=== PATIENT | male | born 1995 | race Caucasian/White ===

== ENCOUNTER 2017-12-06 13:44 | Inpatient (IN) | payer OTHER ==
[~2017-12-06] VITALS: Ht 182.9 cm; Wt 83.9 kg
[2017-12-06] MEDS ORDERED: MORPHINE SULFATE 4 MG/ML, 1ML ONE (14:18)
[2017-12-06] MEDS ORDERED: ONDANSETRON 2MG/ML, 2ML ONE (14:18)
[2017-12-06] MEDS ORDERED: SODIUM CHLORIDE FLUSH 10ML SYR IVF ONE (14:30)
[2017-12-06] MEDS ORDERED: MORPHINE SULFATE 4 MG/ML, 1ML IVPush PRN ×2 (14:30→21:00)
[2017-12-06] MEDS ORDERED: ONDANSETRON ODT 4 MG PO ONE (14:30)
[2017-12-06 14:33] LABS: BASOPHILS # (AUTO) 0.04 x10^3/uL (0-0.1); BASOPHILS % (AUTO) 1 % (0-1); EOSINOPHILS # (AUTO) 0.15 x10^3/uL (0-0.4); EOSINOPHILS % (AUTO) 2 % (1-7); LYMPHOCYTES # (AUTO) 3.82 x10^3/uL (1-3.4); LYMPHOCYTES % (AUTO) 53 % (22-44); MD NO; MEAN CORPUSCULAR HGB CONC 33.8 g/dL (33.2-36.2); MEAN CORPUSCULAR VOLUME 88.8 fL (81-97); MEAN PLATELET VOLUME 8.3 fL (7.4-10.4); MONOCYTES % (AUTO) 10 % (2-9); NEUTROPHILS # (AUTO) 2.47 x10^3/uL (1.8-6.8); NEUTROPHILS % (AUTO) 34 % (42-75); PLATELET COUNT 259 x10^3/uL (130-400); RED BLOOD COUNT 5.31 x10^6/uL (4.38-5.82); RED CELL DISTRIBUTION WIDTH 12.1 % (9.4-14.8)
[2017-12-06 14:41] LABS: ALBUMIN 4.4 g/dL (3.4-5.0); ANION GAP 13 mmol/L (5-15); CALCIUM 8.8 mg/dL (8.5-10.1); CHLORIDE 104 mmol/L (98-107)
[2017-12-06] MEDS ORDERED: POTASSIUM CHLORIDE 20 MEQ TAB.ER.PRT ONE (15:57)
[2017-12-06 17:00] LABS: MICROSCOPIC AUTO
[2017-12-06] MEDS ORDERED: POTASSIUM CHLORIDE 20 MEQ TAB.ER.PRT PO SCH (17:00)
[2017-12-06 17:01] LABS: CULTURE INDICATED? NO
[2017-12-06] MEDS ORDERED: BUPIVACAINE/PF 0.25% ONE (17:59)
[2017-12-06] MEDS ORDERED: EPINEPHRINE 1 MG/ML, 1ML ONE (18:00)
[2017-12-06] MEDS ORDERED: MIDAZOLAM 1 MG/ML, 2ML ONE (18:18)
[2017-12-06] MEDS ORDERED: FENTANYL PF 250 MCG/5ML ONE (18:18)
[2017-12-06 18:22] VITALS: BP 109/67
[2017-12-06] MEDS ORDERED: BUPIVACAINE/PF 0.25% INFIL ONE (18:54)
[2017-12-06] MEDS ORDERED: FENTANYL PF 100 MCG/2ML IV PRN ×2 (19:00→19:15)
[2017-12-06] MEDS ORDERED: LORazepam 2 MG/ML, 1ML IVPush PRN ×2 (19:00→19:15)
[2017-12-06] MEDS ORDERED: PROMETHAZINE 12.5 MG SUPP PR PRN ×2 (19:00→19:15)
[2017-12-06] MEDS ORDERED: LABETALOL 5MG/ML, 20ML IV PRN ×2 (19:00→19:15)
[2017-12-06] MEDS ORDERED: ALBUTEROL SULFATE 2.5 MG/3 ML NPPB PRN ×2 (19:00→19:15)
[2017-12-06] MEDS ORDERED: hydrALAzine 20 MG/ML, 1ML IV PRN ×2 (19:00→19:15)
[2017-12-06] MEDS ORDERED: MEPERIDINE/PF 25MG/0.5ML IVPush PRN ×2 (19:00→19:15)
[2017-12-06] MEDS ORDERED: OXYcodone 5 MG/5 ML ORAL.SOL UDC PO PRN (19:00)
[2017-12-06] MEDS ORDERED: HYDROmorphone 1 MG/ML, 1ML IV PRN ×2 (19:00→19:15)
[2017-12-06] MEDS ORDERED: SUGAMMADEX 200 MG/2 ML IVPush ONE (19:00)
[2017-12-06] MEDS ORDERED: ACETAMINOPHEN 325 MG TABLET PO PRN ×2 (19:00→19:15)
[2017-12-06] MEDS ORDERED: PROMETHAZINE 25 MG/ML, 1ML IV PRN ×2 (19:00→19:15)
[2017-12-06] MEDS ORDERED: OXYcodone 5 MG/5 ML ORAL.SOL UDC ONE (19:37)
[2017-12-06] MEDS ORDERED: ACETAMINOPHEN 650 MG/20.3 ML UDC ONE (19:37)
[2017-12-06] MEDS: OXYcodone 5 MG/5 ML ORAL.SOL UDC PO PRN ×2 (19:40→22:38)
[2017-12-06] MEDS ORDERED: MEPERIDINE/PF 25MG/0.5ML ONE (19:58)
[2017-12-06] MEDS ORDERED: HYDR-3240 PO (20:54)
[2017-12-06] MEDS ORDERED: CEPH-367 PO (20:55)
[2017-12-06] MEDS ORDERED: LACTATED RINGERS 1,000 ML IV SCH (21:00)
[2017-12-06] MEDS ORDERED: ONDANSETRON 2MG/ML, 2ML IVPush PRN (21:00)
[2017-12-06] MEDS ORDERED: ONDANSETRON ODT 4 MG PO PRN (21:30)
[2017-12-07] MEDS ORDERED: ONDANSETRON 2MG/ML, 2ML IVPush PRN (03:00)
== END 2017-12-06 23:01 | disposition home or self-care (01) | DRG 342 ==
LOC: ED 14:45 → 4NOR 20:20 → ED 20:44
PROVIDERS: ADMIT Surgery; ATTEND Surgery
PROC: 0DTJ4ZZ Resection of Appendix, Percutaneous Endoscopic Approach (ICD-10-PCS; principal; 2017-12-06 18:15)
DX: K35.80 Unspecified acute appendicitis (principal); N20.2 Calculus of kidney with calculus of ureter; G89.29 Other chronic pain; N21.0 Calculus in bladder; M25.559 Pain in unspecified hip; R39.15 Urgency of urination; Z81.1 Family history of alcohol abuse and dependence
CPT/HCPCS: 36415; 74176; 80048; 81001; 82040; 85025; 88304; 99285; J0171; J2175; J2250; J3010; J3490; Q0162